=== PATIENT | male | born 1970 | race Two or more races ===

== ENCOUNTER 2020-11-23 20:30 | Inpatient (IN) | payer MEDICAID ==
[~2020-11-23] VITALS: Ht 165.1 cm; Wt 54.4 kg
[2020-11-23] MEDS ORDERED: BACITRACIN ZINC OINT UDPKT TOP ONE (21:00)
[2020-11-23] MEDS ORDERED: TETANUS, DIPHTHERIA, PERTUSSIS VAC/PF 0.5ML (>7YR OLD) IM ONE (21:00)
[2020-11-23] MEDS ORDERED: LIDOCAINE HCL/PF 1% 10 MG/ML 5ML VIAL IJ ONE (21:00)
[2020-11-23] MEDS ORDERED: LIDOCAINE HCL/EPINEPHRINE 1%-EPI 1:100,000 10 ML VIAL IJ ONE (21:00)
[2020-11-23] MEDS ORDERED: CEFTRIAXONE 1 G PREMIX 50 ML IV ONE (21:00)
[2020-11-23 21:35] LABS: CLARITY URINE CLEAR (CLEAR); COLOR URINE YELLOW (YELLOW); KETONES URINE TRACE (NEGATIVE); LEUKOCYTE ESTERASE URINE NEGATIVE (NEGATIVE); NITRITE URINE NEGATIVE (NEGATIVE); OCCULT BLOOD URINE 2+ (NEGATIVE); PH URINE 5.5 (4.5-8.0); PROTEIN URINE 2+ (NEGATIVE); SPECIFIC GRAVITY URINE 1.036 (1.005-1.030)
[2020-11-23 21:49] LABS: HEMATOCRIT. 39.5 % (42.0-52.0); HEMOGLOBIN. 13.3 g/dL (14.0-18.0); MEAN CORPUSCULAR HEMOGLOBIN 31.7 pg (28.0-32.0); MEAN CORPUSCULAR VOLUME 94.7 fL (80.0-94.0); MEAN PLATELET VOLUME 9.3 fl (7.4-10.4); PLATELET 155 x1000/uL (130-400); RED BLOOD CELL COUNT 4.18 mill/uL (4.7-6.1); RED CELL DISTRIBUTION WIDTH 13.5 % (11.6-14.6)
[2020-11-23 21:56] LABS: CHLORIDE 105 mEq/L (98-107)
[2020-11-23] MEDS ORDERED: LIDOCAINE HCL/EPINEPHRINE 1%-EPI 1:100,000 20 ML VIAL INFIL ONE ×2 (22:00)
[2020-11-23 22:19] LABS: PLATELET ESTIMATE NORMAL
[2020-11-23] MEDS: VANCOMYCIN 1 G PREMIX 200 ML IV SCH (23:00)
[2020-11-23] MEDS ORDERED: ONDANSETRON HCL 4MG/2ML INJ IV PRN (23:30)
[2020-11-23] MEDS ORDERED: ACETAMINOPHEN 325MG TABLET PO PRN (23:30)
[2020-11-23] MEDS ORDERED: DIPHENHYDRAMINE 50MG/ML VIAL IV PRN (23:30)
[2020-11-23] MEDS ORDERED: VANCOMYCIN 1 G PREMIX 200 ML IV SCH (23:30)
[2020-11-23] MEDS ORDERED: PIPERACILLIN/TAZ 3.375G PREMIX 50 ML IV SCH (23:30)
[2020-11-23] MEDS ORDERED: CLONIDINE 0.1MG TABLET PO PRN (23:30)
[2020-11-23] MEDS ORDERED: ZOLPIDEM TARTRATE 5MG TABLET PO PRN (23:30)
[2020-11-23] MEDS ORDERED: MAGNESIUM/ALUMINUM HYDROXIDE/SIMETHICONE 30ML UDC PO PRN (23:30)
[2020-11-23] MEDS ORDERED: HYDROCODONE/ACETAMINOPHEN 5/325MG TABLET PO PRN (23:30)
[2020-11-23] MEDS ORDERED: POTASSIUM CHLORIDE 20MEQ TABLET SR PO NR (23:39)
[2020-11-23] MEDS: SODIUM CHLORIDE 0.9% INJ 3ML FLUSH IVF SCH (23:51)
[2020-11-24] MEDS ORDERED: VANCOMYCIN 1500MG in DEXTROSE 5% WATER 250ML IV NR (00:30)
[2020-11-24] MEDS: VANCOMYCIN 1 G PREMIX 200 ML IV SCH ×3 (01:06→23:03)
[2020-11-24] MEDS ORDERED: FENTANYL CITRATE/PF 50MCG/ML 2ML VIAL IV ONE (01:30)
[2020-11-24] MEDS ORDERED: KETAMINE HCL 50 MG/ML 10ML IV STA (01:30)
[2020-11-24] MEDS ORDERED: AMPICILLIN SOD/SULBACTAM NA 3 G in SODIUM CHLORIDE 0.9% 100 ML IV STA (02:35)
[2020-11-24] MEDS ORDERED: TETANUS, DIPHTHERIA, PERTUSSIS VAC/PF 0.5ML (>7YR OLD) IM ONE (02:45)
[2020-11-24] MEDS ORDERED: IOHEXOL-300 100 ML BOTTLE ONE (03:36)
[2020-11-24 11:24] VITALS: BP 104/55
[2020-11-24] MEDS: SODIUM CHLORIDE 0.9% INJ 3ML FLUSH IVF SCH ×2 (14:14→21:22)
[2020-11-24] MEDS ORDERED: CEFTRIAXONE 2 G PREMIX 50 ML IV SCH (16:00)
[2020-11-24] MEDS ORDERED: CLINDAMYCIN 900 MG in DEXTROSE 5% WATER 50 ML IV SCH (17:00)
[2020-11-24] MEDS ORDERED: CEFTRIAXONE 2 G in DEXTROSE 5% WATER 50 ML IV SCH ×2 (17:00→19:00)
[2020-11-24 20:00] VITALS: BP 111/72
[2020-11-24] MEDS: ACETAMINOPHEN 325MG TABLET PO PRN (21:12)
[2020-11-24] MEDS: CLINDAMYCIN 900 MG in DEXTROSE 5% WATER 50 ML IV SCH (21:46)
[2020-11-25] VITALS: BP 117/70
[2020-11-25] MEDS: CLINDAMYCIN 900 MG in DEXTROSE 5% WATER 50 ML IV SCH ×2 (03:25→11:07)
[2020-11-25 04:00] VITALS: BP 99/66
[2020-11-25 06:22] LABS: HEMATOCRIT. 37.1 % (42.0-52.0); HEMOGLOBIN. 12.6 g/dL (14.0-18.0); MEAN CORPUSCULAR HEMOGLOBIN 32.3 pg (28.0-32.0); MEAN CORPUSCULAR VOLUME 95.3 fL (80.0-94.0); MEAN PLATELET VOLUME 9.5 fl (7.4-10.4); PLATELET 139 x1000/uL (130-400); RED BLOOD CELL COUNT 3.89 mill/uL (4.7-6.1); RED CELL DISTRIBUTION WIDTH 13.7 % (11.6-14.6)
[2020-11-25] MEDS: VANCOMYCIN 1 G PREMIX 200 ML IV SCH ×2 (06:24→14:31)
[2020-11-25 06:31] LABS: CHLORIDE 102 mEq/L (98-107)
[2020-11-25] MEDS: SODIUM CHLORIDE 0.9% INJ 3ML FLUSH IVF SCH ×2 (06:31→13:13)
[2020-11-25] MEDS: ACETAMINOPHEN 325MG TABLET PO PRN ×2 (06:41→14:31)
[2020-11-25 06:45] LABS: CREATINE KINASE 282 IU/L (39-308)
[2020-11-25 08:00] VITALS: BP 100/64
[2020-11-25] MEDS ORDERED: POTASSIUM CHLORIDE 20MEQ TABLET SR PO NR (10:15)
[2020-11-25 12:00] VITALS: BP 96/56
[2020-11-25 16:00] VITALS: BP 106/64
[2020-11-25] MEDS: LINEZOLID 600 MG PREMIX 300 ML IV SCH (18:32)
[2020-11-25 19:16] LABS: PLATELET ESTIMATE NORMAL
[2020-11-25 20:00] VITALS: BP 99/65
[2020-11-26] VITALS: BP 97/60
[2020-11-26] MEDS: VANCOMYCIN 1 G PREMIX 200 ML IV SCH ×4 (00:03→22:06)
[2020-11-26] MEDS: ACETAMINOPHEN 325MG TABLET PO PRN ×2 (00:04→11:56)
[2020-11-26] MEDS: SODIUM CHLORIDE 0.9% INJ 3ML FLUSH IVF SCH ×4 (00:05→22:10)
[2020-11-26 04:00] VITALS: BP 98/68
[2020-11-26] MEDS: LINEZOLID 600 MG PREMIX 300 ML IV SCH ×2 (05:10→17:15)
[2020-11-26 08:00] VITALS: BP 106/70
[2020-11-26 12:00] VITALS: BP 102/65
[2020-11-26 16:00] VITALS: BP 108/57
[2020-11-27 04:00] VITALS: BP 103/64
[2020-11-27] MEDS: SODIUM CHLORIDE 0.9% INJ 3ML FLUSH IVF SCH ×2 (05:24→22:05)
[2020-11-27] MEDS: LINEZOLID 600 MG PREMIX 300 ML IV SCH (05:43)
[2020-11-27] MEDS: VANCOMYCIN 1 G PREMIX 200 ML IV SCH ×3 (07:59→22:05)
[2020-11-27 08:00] VITALS: BP 92/66
[2020-11-27 12:00] VITALS: BP 120/78
[2020-11-27 16:00] VITALS: BP 111/67
[2020-11-27 20:00] VITALS: BP 122/80
[2020-11-28] VITALS: BP 100/51
[2020-11-28 04:00] VITALS: BP 108/71
[2020-11-28] MEDS: SODIUM CHLORIDE 0.9% INJ 3ML FLUSH IVF SCH ×3 (05:39→21:17)
[2020-11-28] MEDS: VANCOMYCIN 1 G PREMIX 200 ML IV SCH ×3 (06:03→21:17)
[2020-11-28 07:30] LABS: BASOPHILS % 0.6 % (0.0-2.0); EOSINOPHILS % 3.1 % (0.0-5.0); HEMATOCRIT. 40.8 % (42.0-52.0); HEMOGLOBIN. 13.9 g/dL (14.0-18.0); LYMPHOCYTES % 20.5 % (20.0-50.0); MEAN CORPUSCULAR HEMOGLOBIN 32.3 pg (28.0-32.0); MEAN CORPUSCULAR VOLUME 95.2 fL (80.0-94.0); MEAN PLATELET VOLUME 8.5 fl (7.4-10.4); MONOCYTES % 9.9 % (2.0-8.0); NEUTROPHILS % 65.9 % (40.0-76.0); PLATELET 243 x1000/uL (130-400); RED BLOOD CELL COUNT 4.29 mill/uL (4.7-6.1); RED CELL DISTRIBUTION WIDTH 13.7 % (11.6-14.6)
[2020-11-28 07:35] LABS: CHLORIDE 103 mEq/L (98-107)
[2020-11-28 08:00] VITALS: BP 122/71
[2020-11-28 16:00] VITALS: BP 88/53
[2020-11-28 20:00] VITALS: BP 103/72
[2020-11-29] VITALS: BP 113/66
[2020-11-29 04:00] VITALS: BP 101/73
[2020-11-29] MEDS: VANCOMYCIN 1 G PREMIX 200 ML IV SCH (05:10)
[2020-11-29] MEDS: SODIUM CHLORIDE 0.9% INJ 3ML FLUSH IVF SCH (05:14)
[2020-11-29 08:00] VITALS: BP 120/82
[2020-11-29 12:00] VITALS: BP 109/79
[2020-11-29] MEDS ORDERED: VANCOMYCIN 750 MG PREMIX 150 ML IV SCH (14:00)
[2020-11-29 15:15] VITALS: BP 109/79
== END 2020-11-29 15:45 | disposition home or self-care (01) | DRG 720 ==
LOC: ER 20:30 → 6EST 23:20 → CANBEDREQ 11-24 02:24 → ENRESERV 11-24 08:23
PROVIDERS: ADMIT Internal Medicine; ATTEND Internal Medicine
DX: A41.9 Sepsis, unspecified organism (principal); E46 Unspecified protein-calorie malnutrition; F12.10 Cannabis abuse, uncomplicated; L03.113 Cellulitis of right upper limb; S50.861A Insect bite (nonvenomous) of right forearm, initial encounter; L02.419 Cutaneous abscess of limb, unspecified; W57.XXXA Bitten or stung by nonvenomous insect and other nonvenomous arthropods, initial encounter; F17.210 Nicotine dependence, cigarettes, uncomplicated; B95.62 Methicillin resistant Staphylococcus aureus infection as the cause of diseases classified elsewhere; M60.831 Other myositis, right forearm; Z59.0 Homelessness; Y93.89 Activity, other specified; Y92.89 Other specified places as the place of occurrence of the external cause; Y99.8 Other external cause status; Z68.20 Body mass index [BMI] 20.0-20.9, adult
CPT/HCPCS: 36415; 71045; 73090; 73201; 73221; 80048; 80076; 80202; 81003; 82040; 82550; 83605; 83735; 84134; 84145; 84484; 85025; 85651; 86140; 87070; 87075; 87077; 87102; 87186; 90715; 93005; 99285; J0295; J0696; J2020; J2543; J3010; J3370; J3490; J7040; J7050; J7060; Q9967